=== PATIENT | female | born 1990 ===

== ENCOUNTER 2019-01-31 17:27 | Emergency (ER) | payer OTHER ==
[2019-01-31 17:34] VITALS: BMI 28.3
[2019-01-31 17:40] VITALS: BP 125/84; RESP 18; TEMP 98.9; O2SAT 100
[2019-01-31] MEDS ORDERED: Lidocaine 2% Inj (20ml) INFIL STA (18:01)
--- NOTE | 2019-01-31 18:02 | C.PDOC ---
History Of Present Illness Patient is a 29 year old female who presents to the ED for evaluation of laceration to the back of her left ankle that was sustained at 4:30pm after patient hit her leg into a plastic beam while at work. Patient denies any pain and is able to walk. Tetanus vaccination was last year. Diabetes Territory Manager was used. Time Seen by Provider: 01/31/19 17:52 Chief Complaint (Nursing): Abnormal Skin Integrity History Per: Patient History/Exam Limitations: no limitations Onset/Duration Of Symptoms: Hrs Current Symptoms Are (Timing): Still Present Recent travel outside of the [place]: No Additional History Per: Patient Past Medical History Reviewed: Historical Data, Nursing Documentation, Vital Signs Vital Signs: Last Vital Signs Temp 98.9 F 01/31/19 17:37 Pulse 82 01/31/19 17:37 Resp 18 01/31/19 17:37 BP 125/84 01/31/19 17:37 Pulse Ox 100 01/31/19 17:37 Primary Care Provider: FAMILY PROVIDER,NO - Medical History PMH: No Chronic Diseases Surgical History: No Surg Hx Family History: States: No Known Family Hx - Social History Hx Alcohol Use: No Hx Substance Use: No - Immunization History Hx Tetanus Toxoid Vaccination: No Hx Influenza Vaccination: No Hx Pneumococcal Vaccination: No Review Of Systems Except As Marked, All Systems Reviewed And Found Negative. Skin: Positive for: Other (laceration to back of left ankle) Physical Exam - Physical Exam Appears: Well, Non-toxic, No Acute Distress Skin: Normal Color, Warm, Dry Head: Atraumatic, Normacephalic Eye(s): bilateral: Normal Inspection Extremity: Normal ROM, No Tenderness, No Deformity, Other (Left posterior ankle 2.5cm C-shaped laceration. No active bleeding or swelling. Achilles intact. No foreign bodies) Pulses: Left Dorsalis Pedis: Normal, Right Dorsalis Pedis: Normal Neurological/Psych: Oriented x3, Normal Speech, Normal Cognition ED Course And Treatment O2 Sat by Pulse Oximetry: 100 (on RA) Pulse Ox Interpretation: Normal Laceration - Laceration Repair No standard instances Wound Length (In cm): 2.5 Description Of Wound: Irregular (C-shaped) Wound Cleansed With: Betadine, Sterile Saline Anesthesia: Lidocaine 2% Wound Examination: Irrigated With Saline Wound Closure: Suture Suture Technique And Material Used: Interrupted, Nylon (5 of 4-0 ) Wound Complexity: Simple (Dressing and Bacitracin applied) Medical Decision Making Medical Decision Making: Lac repair performed. Tolerated procedure well. Instructed on wound care and follow-up with PMD for wound check. Advised to have sutures removed in 10-14 due to region of wound near joint. Will return with any worsening symptoms. Disposition Counseled Patient/Family Regarding: Diagnosis, Need For Followup - Disposition Referrals: FAMILY PROVIDER,NO [Family Provider] - Disposition: HOME/ ROUTINE Disposition Time: 18:27 Condition: GOOD Additional Instructions: Do not remove dressing or get area wet for 2 days. Then you can remove dressing and wash wound twice daily with warm soapy water. apply antibiotic ointment and keep covered. have wound check with your PMD or work doctor in 2 days. have sutures removed in 10-14 days. return if symptoms worsen or persist. Instructions: Laceration Repair Forms: Gen Discharge Inst Salvadorean, [employer] (Salvadorean), Work Excuse Print Language: BRAZILIAN - Clinical Impression Clinical Impression: Laceration of ankle - PA / [employer]PER [facility] / Resident Statement MD/DO has reviewed & agrees with the documentation as recorded. - Scribe Statement The provider has reviewed the documentation as recorded by the Debo Rao All medical record entries made by the Debo were at my direction and personally dictated by me. I have reviewed the chart and agree that the record accurately reflects my personal performance of the history, physical exam, medical decision making, and the department course for this patient. I have also personally directed, reviewed, and agree with the discharge instructions and disposition.
[2019-01-31] MEDS ORDERED: Lidocaine 2% MPF (5 ml) Inj ONE (18:15)
[2019-01-31] MEDS ORDERED: Bacitracin 500 Units/gm Oint Foilpak UD ONE (18:23)
[2019-01-31 18:41] VITALS: PULSE 75
== END 2019-01-31 18:41 | disposition home or self-care (01) ==
LOC: C.ER 17:27
DX: S91.012A Laceration without foreign body, left ankle, initial encounter (principal); W22.8XXA Striking against or struck by other objects, initial encounter; Y92.69 Other specified industrial and construction area as the place of occurrence of the external cause; Y99.0 Civilian activity done for income or pay